=== PATIENT | female | born 1970 | race Hispanic/Latino ===

== ENCOUNTER → 2019-06-05 | Outpatient (CLI) | payer MEDICAID | END | disposition home or self-care (01) | LOC: RAH 15:51 | PROVIDERS: ATTEND Family Medicine | DX: Z12.31 Encounter for screening mammogram for malignant neoplasm of breast (principal) | CPT/HCPCS: 77067 ==

== ENCOUNTER 2024-08-22 19:18 | Emergency (ER) | payer SELFPAY ==
[~2024-08-22] VITALS: Ht 152.4 cm; Wt 83.9 kg
[2024-08-22 19:34] VITALS: TEMP 98.6
[2024-08-22 20:29] LABS: BASOPHILS # (AUTO) 0.05 K/uL (0.00-0.20); BASOPHILS % (AUTO) 0.5 % (0.0-5.0); EOSINOPHILS # (AUTO) 0.53 K/uL (0.00-0.70); EOSINOPHILS % (AUTO) 5.5 % (0.0-8.0); HEMATOCRIT 37.4 % (36-48); IMMATURE GRANULOCYTE ABSOLUTE 0.06 K/uL (0-1); LYMPHOCYTES # (AUTO) 2.9 K/uL (1.0-4.8); LYMPHOCYTES % (AUTO) 30.1 % (21.0-51.0); MEAN CORPUSCULAR HEMOGLOBIN 30.6 pg (27.0-33.0); MEAN CORPUSCULAR HGB CONC 34.8 g/dL (32.0-36.0); MONOCYTES # (AUTO) 0.9 K/uL (0.1-1.0); MONOCYTES % (AUTO) 8.9 % (3.0-13.0); NEUTROPHILS # (AUTO) 5.2 K/uL (1.8-7.7); NEUTROPHILS % (AUTO) 54.4 % (40.0-77.0); PLATELET COUNT (AUTO) 237 K/uL (130-400); RED BLOOD CELL COUNT(AUTO) 4.25 MIL/uL (4.00-5.50); RED CELL DISTRIBUTION WIDTH 13.7 % (11.0-15.5); WHITE BLOOD COUNT (AUTO) 9.6 K/uL (4.8-10.8)
[2024-08-22 20:31] VITALS: BP 122/64; PULSE 78; RESP 20; O2SAT 97
[2024-08-22 20:46] LABS: CREATININE 1.1 mg/dL (0.5-1.0); POTASSIUM 3.6 mmol/L (3.5-5.1)
[2024-08-22 20:52] LABS: ALBUMIN 3.8 g/dL (3.5-5.0); BILIRUBIN,TOTAL 0.4 mg/dL (0.2-1.0); MAGNESIUM 1.7 mg/dL (1.80-2.40); TOTAL PROTEIN, SERUM 7.8 g/dL (6.0-8.3)
[2024-08-22] MEDS: metoCLOPRAmide 10 MG/2 ML VIAL IVP ONE (21:00)
[2024-08-22] MEDS: 0.9%NACL 1000ML 1,000 ML IV ONE (21:00)
== END 2024-08-22 22:16 | disposition home or self-care (01) ==
LOC: EDH 19:18
DX: E86.0 Dehydration (principal); E83.42 Hypomagnesemia; R55 Syncope and collapse; I10 Essential (primary) hypertension; Z98.890 Other specified postprocedural states
CPT/HCPCS: 99285; 96374; 70450; 82550; 83735; 84484; 80053; 85025; 36415; 93005; J7030; J2765

== ENCOUNTER 2025-08-04 15:31 | Emergency (ER) | payer SELFPAY ==
[~2025-08-04] VITALS: Ht 152.4 cm; Wt 86.2 kg
[2025-08-04 16:08] LABS: IMMATURE GRANULOCYTE ABSOLUTE 0.03 K/uL (0-1); NUCLEATED RED BLOOD CELLS 0.0 % (0.0-0.19); PLATELET COUNT (AUTO) 245 K/uL (130-400); RED BLOOD CELL COUNT(AUTO) 4.93 MIL/uL (4.00-5.50); RED CELL DISTRIBUTION WIDTH 13.5 % (11.0-15.5); WHITE BLOOD COUNT (AUTO) 7.9 K/uL (4.8-10.8)
[2025-08-04 16:12] LABS: RAPID GROUP A STREP negative (NEGATIVE)
[2025-08-04 16:14] LABS: CREATININE 1.2 mg/dL (0.5-1.0); GLOMERULAR FILTR. RATE CALC 53.0 mL/min (>90); GLUCOSE,RANDOM 95.0 mg/dL (70-105); SODIUM SERUM 137.0 mmol/L (136-145); UREA NITROGEN, BLOOD 17.0 mg/dL (7-18)
[2025-08-04 16:18] LABS: INFLUENZA TYPE A Negative For Type A (NEGATIVE); INFLUENZA TYPE B Negative For Type B (NEGATIVE)
[2025-08-04 16:26] LABS: COVID19 (SARS ANTIGEN RAPID) POSITIVE FOR SARS AG (NEGATIVE)
--- NOTE | 2025-08-04 17:38 | HMCIMG ---
EXAM: CT Head Without IV contrast. CLINICAL HISTORY: HODGES TECHNIQUE: Axial computed tomography images of the head/brain without intravenous contrast. COMPARISON: None provided. FINDINGS: BRAIN: No evidence of acute hemorrhage. No mass lesion. No CT evidence for acute territorial infarct. No midline shift or extra-axial collections. VENTRICLES: No hydrocephalus. ORBITS: The orbits are unremarkable. SINUSES AND MASTOIDS: The paranasal sinuses and mastoid air cells are clear. BONES: No fracture. SOFT TISSUES: Unremarkable. IMPRESSION: No acute intracranial abnormality. /[place]
[2025-08-04] MEDS ORDERED: PROC5TAB54 PO (18:08)
--- NOTE | 2025-08-04 18:08 | ERN ---
ED Note History of Present Illness Stated Complaint: HEADACHE Chief Complaint: Headache Time Seen by MD: 15:34 Dictation: 54-year-old female with generalized body weakness headaches and nausea vomiting. Patient has body aches and chills over the past few days. Allergies: Coded Allergies: No Known Allergies (Unverified Allergy, Unknown, 08/22/24) Past Medical History Past Medical History: Hypertension Surgical History: Review of System Dictation Constitutional: Per HPI Eyes: Negative for injury, pain,redness, and discharge ENT: Negative for injury,pain or swelling Cardiovascular: Negative for chest pain, palpitations, and edema Respiratory: Negative for shortness of breath, cough, and wheezing, Abdomen/GI per HPI Back: Negative for injury and pain : Negative for injury, bleeding and discharge MS/Extremity: Negative for injury and deformity Skin: Negative for rash, and discoloration Neuro: Per HPI Initial Vital Sign VS Vital Signs Date Time Temp Pulse Resp B/P (MAP) Pulse Ox O2 Delivery O2 Flow Rate FiO2 08/04/25 15:34 97.9 72 20 114/82 99 Room Air 08/04/25 15:41 0 21 Physical Exam Dictation General: awake, alert, NAD Head/Face: Normocephalic, atraumatic Eyes: PERRL, EOMI, vision at baseline ENT: oral cavity clear, TMs clear, no signs of infection Neck: Trachea midline, supple, no nuchal rigidity Cardiovascular: RRR, normal S1/S2, No MRGs, no JVD Respiratory: CTAB, no respiratory distress, No rales or wheezes Abdomen: Soft, non-tender, non-distended, normal bowel sounds, no guarding or rebound. Skin: Warm, dry, normal turgor, no rash MS/Extremity: Pulses equal, no cyanosis, neurovascular intact, FROM Neuro: COAx4, GCS 15, strength 5/5, CN 2-12 intact, normal cerebellar exam, normal gait, Psych: Normal behavior, mood, and affect normal Results (Laboratory/Radiology) Laboratory/Radiology Laboratory Tests Test 08/04/25 15:48 08/04/25 16:00 Influenza Type A Antigen Negative For Type A Influenza Type B Antigen Negative For Type B SARS-CoV-2 Antigen (Rapid) POSITIVE FOR SARS AG Group A Streptococcus Rapid negative (NEGATIVE) White Blood Count 7.9 K/uL (4.8-10.8) Red Blood Count 4.93 MIL/uL (4.00-5.50) Hemoglobin 14.9 g/dL (12.0-16.0) Hematocrit 43.2 % (36-48) Mean Corpuscular Volume 87.6 fL (79-99) Mean Corpuscular Hemoglobin 30.2 pg (27.0-33.0) Mean Corpuscular Hemoglobin Concent 34.5 g/dL (32.0-36.0) Red Cell Distribution Width 13.5 % (11.0-15.5) Platelet Count 245 K/uL (130-400) Mean Platelet Volume 10.9 fL (7.5-10.5) H Immature Granulocyte % (Auto) 0.4 % (0-1) Neutrophils (%) (Auto) 53.1 % (40.0-77.0) Lymphocytes (%) (Auto) 35.2 % (21.0-51.0) Monocytes (%) (Auto) 10.1 % (3.0-13.0) Eosinophils (%) (Auto) 0.6 % (0.0-8.0) Basophils (%) (Auto) 0.6 % (0.0-5.0) Neutrophils # (Auto) 4.2 K/uL (1.8-7.7) Lymphocytes # (Auto) 2.8 K/uL (1.0-4.8) Monocytes # (Auto) 0.8 K/uL (0.1-1.0) Eosinophils # (Auto) 0.05 K/uL (0.00-0.70) Basophils # (Auto) 0.05 K/uL (0.00-0.20) Absolute Immature Granulocyte (auto 0.03 K/uL (0-1) Nucleated Red Blood Cells 0.0 % (0.0-0.19) Sodium Level 137 mmol/L (136-145) Potassium Level 3.6 mmol/L (3.5-5.1) Chloride Level 96 mmol/L (101-111) L Carbon Dioxide Level 31 mmol/L (21-32) Blood Urea Nitrogen 17 mg/dL (7-18) Creatinine 1.2 mg/dL (0.5-1.0) H Glomerular Filtration Rate Calc 53 mL/min (>90) Random Glucose 95 mg/dL (70-105) Total Calcium 9.3 mg/dL (8.5-10.1) Labs Reviewed?: Yes ED Course ED Course Orders Procedure Category Date Status Time Covid19 (Sars Antigen LAB 08/04/25 Complete Rapid) 15:40 Influenza Type A & B, LAB 08/04/25 Complete Rapid 15:40 Rapid (Group A Strep) LAB 08/04/25 Complete 15:40 Basic Metabolic Panel LAB 08/04/25 Complete 15:48 Cbc With Differential LAB 08/04/25 Complete 15:48 Ct Head/Brain W/O CT 08/04/25 Resulted Contrast 15:48 Ondansetron 4mg Inj PHA 08/04/25 In Process (Zofran 4mg Inj) 16:00 Ketorolac PHA 08/04/25 In Process Tromethamine 15mg/Ml 16:00 Current Medications Medications (Trade) Dose Ordered Sig/Beatriz Route PRN Reason Start Time Stop Time Status Last Admin Dose Admin Ketorolac Tromethamine (toRADol) 15 mg ONCE IV 08/04/25 16:00 08/04/25 20:00 08/04/25 16:05 Ondansetron HCl (zoFRAN 4MG INJ) 4 mg ONCE IVP 08/04/25 16:00 08/04/25 20:00 08/04/25 16:05 Vital Signs Date Time Temp Pulse Resp B/P (MAP) Pulse Ox O2 Delivery O2 Flow Rate FiO2 08/04/25 15:41 98.1 74 16 116/80 98 Room Air* 0 21 08/04/25 15:34 97.9 72 20 114/82 99 Room Air Medical Decision Making MDM MDM: Differential diagnosis: Rationale: Tests considered and ordered secondary to shared decision making include: Previous outside records reviewed: Old ER visits. Risk of complication and/or morbidity or mortality of patient management: None Medications-Per medication reconciliation Need for hospitalization: Patient does not meet criteria for hospitalization. Need for emergency major/minor surgery: No There are no social concerns with this patient. Prescription drug management Prescriptions will include symptomatic care Patient's prior external medical records from other ER visits were reviewed by me as indicated. Prior testing and results from previous visits were reviewed. Prior tests were taken into account with medical decision making and resource utilization, independent historian/historians were used to obtain complete medical history. I independently interpreted the test that were performed, results were reviewed by me and considered findings on radiology if ordered. Medical management and examination interpretation discussions were had by me with other qualified healthcare professionals as indicated for the patient's care. 54-year-old female with negative workup COVID positive stable for discharge DX & DISP Disposition: Transfer Departure Impression: Primary Impression: Dehydration Additional Impression: COVID-19 Condition: Stable Scripts Prochlorperazine Maleate (Compazine) 5 Mg Tab 1 TAB PO QID for 5 Days, #20 TAB 0 Refills Prov: DELL SCHMITZ MD 08/04/25 Referrals: LEILA UNDERWOOD MD (PCP) DELL SCHMITZ MD Aug 04, 2025 18:08
[2025-08-04 18:09] VITALS: BP 120/78; PULSE 72; RESP 16; TEMP 98; O2SAT 98
== END 2025-08-04 18:17 | disposition home or self-care (01) ==
LOC: EDH 15:31
DX: U07.1 COVID-19 (principal); E86.0 Dehydration; I10 Essential (primary) hypertension; Z98.890 Other specified postprocedural states
CPT/HCPCS: 99285; 96374; 70450; 96375; 87426; 80048; 85025; 87880; 87804 ×2; 36415; J1885; J2405